=== PATIENT | female | born 1995 | race Caucasian/White ===

== ENCOUNTER 2017-06-02 23:42 | Inpatient (IN) | payer MEDICAID, OTHER ==
[~2017-06-02] VITALS: Ht 175.3 cm; Wt 88.7 kg
[~2017-06-02 23:42] MED LIST: AMIT25TA PO; AMPI500C2 PO; BCP; BIOT1CAP3 PO; DIPH25CA61 PO; DOXY100T PO; LEVO500T33 PO; LORA-446 PO; OXYC5TAB3 PO; PANT40TA3 PO; POLY17PO5 PO; TAMS0.4C2 PO; [UNRECOGNIZED DRUG - CODE] PO
[2017-06-03] MEDS ORDERED: HYDROmorphone 1 MG/ML, 1ML ONE (00:26)
[2017-06-03] MEDS ORDERED: ONDANSETRON 2MG/ML, 2ML ONE (00:26)
[2017-06-03] MEDS ORDERED: HYDROmorphone 1 MG/ML, 1ML IVPush PRN (00:30)
[2017-06-03] MEDS ORDERED: ONDANSETRON 2MG/ML, 2ML IVPush ONE (00:30)
[2017-06-03] MEDS ORDERED: MULTIVIT (00:38)
[2017-06-03] MEDS ORDERED: ASCO1TAB15 PO (00:38)
[2017-06-03] MEDS ORDERED: LACT1CAP15 PO (00:38)
[2017-06-03] MEDS ORDERED: FOLI-17 PO (00:38)
[2017-06-03] MEDS ORDERED: USTE45DI SQ (00:38)
[2017-06-03] MEDS ORDERED: NS + 20MEQ KCL 1,000 ML IV SCH (00:49)
[2017-06-03] MEDS ORDERED: ONDANSETRON 2MG/ML, 2ML IVPush PRN ×2 (01:00→15:30)
[2017-06-03] MEDS ORDERED: DIPHENHYDRAMINE 25 MG CAPSULE PO PRN (01:00)
[2017-06-03] MEDS ORDERED: DOCUSATE 100 MG CAPSULE PO PRN ×2 (01:00→15:30)
[2017-06-03] MEDS ORDERED: POLYETHYLENE GLYCOL 17 GM PACKET PO PRN ×2 (01:00→15:30)
[2017-06-03] MEDS ORDERED: OXYcodone IR 5MG TABLET PO PRN (01:00)
[2017-06-03] MEDS ORDERED: HYDROcodone/APAP 5/325 TABLET PO PRN ×2 (01:00→15:30)
[2017-06-03] MEDS ORDERED: LORazepam 1MG TABLET PO PRN ×2 (01:00→15:30)
[2017-06-03] MEDS: AMITRIPTYLINE 25 MG TABLET PO SCH ×2 (01:00→20:50)
[2017-06-03] MEDS ORDERED: ACETAMINOPHEN 325 MG TABLET PO PRN (01:00)
[2017-06-03] MEDS ORDERED: AZATHIOPRINE 50 MG TABLET PO ONE (02:00)
[2017-06-03] MEDS: AMPICILLIN/SULBACTAM 3 GM in SODIUM CHLORIDE 0.9% 100 ML IV SCH ×4 (03:03→20:49)
[2017-06-03 07:34] VITALS: BP 97/51
[2017-06-03] MEDS ORDERED: TAMSULOSIN 0.4 MG CAP.ER.24H PO SCH (09:00)
[2017-06-03] MEDS ORDERED: BIF CMB1 HOMEMEDPO SCH (09:00)
[2017-06-03] MEDS ORDERED: LACT CMB2 HOMEMEDPO SCH (09:00)
[2017-06-03] MEDS ORDERED: prednisOLONE 15 MG/5 ML ORAL SOLN PO SCH (09:00)
[2017-06-03] MEDS ORDERED: S THERMOPHL HOMEMEDPO SCH (09:00)
[2017-06-03] MEDS: POLYETHYLENE GLYCOL 17 GM PACKET PO SCH (09:05)
[2017-06-03] MEDS: FOLIC ACID 1 MG TABLET PO SCH (09:05)
[2017-06-03] MEDS: TEMPLATE NON-FORMULARY MED. (Biotin** 1 MG) HOMEMEDPO SCH (09:07)
[2017-06-03] MEDS: morphine SULFATE 10 MG/ML, 1ML IVPush PRN ×4 (10:02→23:45)
[2017-06-03 14:37] VITALS: BP 112/71
[2017-06-03 19:27] VITALS: BP 106/63
[2017-06-03] MEDS: AZATHIOPRINE 50 MG TABLET PO SCH (20:55)
[2017-06-04 01:58] VITALS: BP 105/62
[2017-06-04] MEDS: AMPICILLIN/SULBACTAM 3 GM in SODIUM CHLORIDE 0.9% 100 ML IV SCH ×4 (03:22→21:21)
[2017-06-04 05:27] LABS: HEMATOCRIT 35.8 % (34.6-47.8); WHITE BLOOD COUNT 4.6 x10^3/uL (3.4-10)
[2017-06-04 05:40] LABS: BLOOD UREA NITROGEN 10 mg/dL (7-18)
[2017-06-04] MEDS ORDERED: OXYMETAZOLINE NASAL SPRAY 0.05%, 15ML ONE (06:48)
[2017-06-04] MEDS ORDERED: MIDAZOLAM 1 MG/ML, 2ML ONE (06:51)
[2017-06-04] MEDS ORDERED: FENTANYL PF 100 MCG/2ML ONE ×3 (06:51→08:12)
[2017-06-04] MEDS ORDERED: GLYCOPYRROLATE 0.2MG/1ML ONE (07:04)
[2017-06-04] MEDS ORDERED: SUCCINYLCHOLINE 20 MG/ML, 10ML ONE (07:04)
[2017-06-04] MEDS ORDERED: PROPOFOL 10 MG/ML, 20ML ONE (07:04)
[2017-06-04] MEDS ORDERED: ACETAMINOPHEN 650 MG/20.3 ML UDC ONE (07:56)
[2017-06-04] MEDS ORDERED: OXYcodone 5 MG/5 ML ORAL.SOL UDC ONE (07:57)
[2017-06-04] MEDS ORDERED: hydrALAzine 20 MG/ML, 1ML IV PRN (08:00)
[2017-06-04] MEDS ORDERED: OXYcodone 5 MG/5 ML ORAL.SOL UDC PO PRN (08:00)
[2017-06-04] MEDS ORDERED: PROMETHAZINE 25 MG/ML, 1ML IV PRN (08:00)
[2017-06-04] MEDS ORDERED: MIDAZOLAM 1 MG/ML, 2ML IV PRN (08:00)
[2017-06-04] MEDS ORDERED: ALBUTEROL SULFATE 2.5 MG/3 ML NPPB PRN (08:00)
[2017-06-04] MEDS ORDERED: HYDROmorphone 1 MG/ML, 1ML IV PRN (08:00)
[2017-06-04] MEDS ORDERED: MEPERIDINE/PF 25MG/0.5ML IVPush PRN (08:00)
[2017-06-04] MEDS ORDERED: ACETAMINOPHEN 325 MG TABLET PO PRN (08:00)
[2017-06-04] MEDS: FENTANYL PF 100 MCG/2ML IV PRN ×2 (08:15→08:34)
[2017-06-04] MEDS: TEMPLATE NON-FORMULARY MED. (Biotin** 1 MG) HOMEMEDPO SCH (09:00)
[2017-06-04] MEDS: POLYETHYLENE GLYCOL 17 GM PACKET PO SCH (09:00)
[2017-06-04] MEDS: FOLIC ACID 1 MG TABLET PO SCH (09:00)
[2017-06-04] MEDS ORDERED: OXYcodone/APAP 10/325MG TABLET ONE (09:25)
[2017-06-04] MEDS ORDERED: IBUPROFEN 200 MG TABLET PO PRN ×2 (09:30→14:50)
[2017-06-04] MEDS ORDERED: OXYcodone/APAP 10/325MG TABLET PO PRN (09:30)
[2017-06-04] MEDS ORDERED: ONDANSETRON 2MG/ML, 2ML IVPush PRN (10:00)
[2017-06-04] MEDS ORDERED: MORPHINE SULFATE 4 MG/ML, 1ML ONE ×2 (10:19→13:35)
[2017-06-04] MEDS: morphine SULFATE 10 MG/ML, 1ML IVPush PRN ×3 (10:22→21:57)
[2017-06-04] MEDS ORDERED: LORazepam 2 MG/ML, 1ML IVPush PRN (11:00)
[2017-06-04 14:20] VITALS: BP 121/71
[2017-06-04] MEDS: KETOROLAC 30 MG/1 ML IVPush SCH ×2 (15:03→21:22)
[2017-06-04] MEDS: BIF CMB1 HOMEMEDPO SCH (21:00)
[2017-06-04] MEDS: AMITRIPTYLINE 25 MG TABLET PO SCH (21:00)
[2017-06-04] MEDS: LACT CMB2 HOMEMEDPO SCH (21:00)
[2017-06-04] MEDS: S THERMOPHL HOMEMEDPO SCH (21:00)
[2017-06-04] MEDS: AZATHIOPRINE 50 MG TABLET PO SCH (21:22)
[2017-06-04 21:32] VITALS: BP 112/62
[2017-06-04] MEDS: ACETAMINOPHEN 325 MG TABLET PO PRN (23:41)
[2017-06-05] MEDS ORDERED: BUTALB/APAP/CAFFEINE 50MG/325MG/40MG PO ONE (01:30)
[2017-06-05] MEDS: KETOROLAC 30 MG/1 ML IVPush SCH ×2 (03:42→09:54)
[2017-06-05] MEDS: AMPICILLIN/SULBACTAM 3 GM in SODIUM CHLORIDE 0.9% 100 ML IV SCH ×2 (03:42→08:45)
[2017-06-05 04:00] VITALS: BP 123/82
[2017-06-05] MEDS: ACETAMINOPHEN 325 MG TABLET PO PRN (08:15)
[2017-06-05 08:28] VITALS: BP 109/68
[2017-06-05] MEDS: POLYETHYLENE GLYCOL 17 GM PACKET PO SCH (08:44)
[2017-06-05] MEDS: S THERMOPHL HOMEMEDPO SCH (08:44)
[2017-06-05] MEDS: TEMPLATE NON-FORMULARY MED. (Biotin** 1 MG) HOMEMEDPO SCH (08:44)
[2017-06-05] MEDS: FOLIC ACID 1 MG TABLET PO SCH (08:44)
[2017-06-05] MEDS: LACT CMB2 HOMEMEDPO SCH (08:44)
[2017-06-05] MEDS: BIF CMB1 HOMEMEDPO SCH (08:44)
[2017-06-05] MEDS ORDERED: AMOX400S2 PO (09:04)
[2017-06-05] MEDS ORDERED: OXYC1TAB9 PO (09:05)
[2017-06-05 09:52] VITALS: BP 126/77
[2017-06-05] MEDS ORDERED: AMIT25TA PO (10:19)
[2017-06-05] MEDS ORDERED: AZAT50TA9 PO (10:20)
[2017-06-05] MEDS ORDERED: ACET-1757 PO (10:23)
== END 2017-06-05 10:57 | disposition home or self-care (01) | DRG 133 ==
LOC: ED 06-03 00:10 → SUATTDRO 06-03 00:23 → EDIP 06-03 00:26 → 4NOR 06-03 01:28 → DCLOUNGE 06-05 10:15
PROVIDERS: ADMIT Family Medicine; ATTEND Family Medicine
PROC: 0CTPXZZ Resection of Tonsils, External Approach (ICD-10-PCS; principal; 2017-06-04 07:00)
DX: J36 Peritonsillar abscess (principal); K50.90 Crohn's disease, unspecified, without complications; M43.6 Torticollis; R13.19 Other dysphagia; G89.29 Other chronic pain; Z79.899 Other long term (current) drug therapy; Z87.442 Personal history of urinary calculi; Z90.49 Acquired absence of other specified parts of digestive tract
CPT/HCPCS: 36415; 80048; 85025; 88304; 96374; 96375; J0295; J1170; J1885; J2250; J2405; J2704; J3010; J3480; J3490; J7500; J0330; J2060; J2270